=== PATIENT | female | born 1965 | race Caucasian/White ===

== ENCOUNTER → 2018-11-27 11:41 | Outpatient (CLI) | payer BC ==
[2010-11-03 08:29] VITALS: BMI 33.2
--- NOTE | 2018-11-30 12:08 | ST ---
PATIENT:RAISSA MONTALVO MEDICAL RECORD: [id number] SEX: F LOCATION:[facility] ORDER #: ADMISSION DATE: 11/27/18 AGE OF PATIENT: 53 REFERRING PHYSICIAN: INTERPRETING PHYSICIAN: TORSTEN CRANE MD DATE OF SERVICE: 11/27/2018 PROCEDURE: Nuclear stress test. INDICATIONS: Angina, obesity, shortness of breath. She was exercised on standard Lexiscan protocol with 33 mCi of sestamibi injected at peak stress, 11 mCi used previously for rest images. FINDINGS: Gated SPECT reveals preserved ejection fraction at 72% with good wall motion and thickening and brightening throughout all segments. SPECT imaging: Cardiolite was used as myocardial perfusion agent. There is homogeneous uptake throughout all segments at rest and stress with no evidence of inducible ischemia or previous infarction. OVERALL IMPRESSION: 1. This is a normal nuclear stress test with no evidence of inducible ischemia or previous infarction. 2. Gated SPECT reveals a preserved ejection fraction at 72%. In this patient with ongoing symptomatology, the current scan does not suggest the presence of hemodynamically significant coronary artery disease. Evaluate noncardiac etiology of chest pain. 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
== END | disposition home or self-care (01) ==
LOC: D.HCCARDIO 11-22 10:00
PROVIDERS: ATTEND Internal Medicine Interventional Cardiology
DX: R07.9 Chest pain, unspecified (principal)